=== PATIENT | male | born 1955 | race Caucasian/White ===

== ENCOUNTER 2024-01-23 16:45 | Emergency (ER) | payer OTHER ==
[2024-01-23 17:52] LABS: Absolute Basophils 0.1 K/uL (0-0.5); Absolute Eosinophils 0.5 K/uL (0-0.5); Absolute Monocytes 0.7 K/uL (0.1-1.3); Eosinophils % 8.4 % (0-4.4); Hematocrit 38.7 % (39.6-49.0); Hemoglobin 13.4 g/dL (13.6-17.9); Lymphocytes % 32.1 % (15.3-44.8); MCHC 34.7 g/dL (32.0-36.0); MCV 83.7 fL (80-100); MPV 8.8 fL (7.6-11.3); Monocytes % 11.1 % (3.3-12.3); Neutrophils % 47.4 % (41.7-73.7); Nucleated Red Blood Cells % 0.2 % (0-0); Platelets 235 thou/uL (152-406); RBC Red Blood Cell Count 4.62 M/uL (4.33-5.43); Red Cell Distribution Width 13.9 % (12.1-15.2)
--- NOTE | 2024-01-23 17:53 | RAD REPORT ---
EXAMINATION: ONE VIEW CHEST XR CLINICAL INDICATION: Male, 68 years old.CHEST PAIN TECHNIQUE: 1 View, AP supine, X-ray of the chest was performed. [id number]. COMPARISON: No prior exam. FINDINGS: Lungs and pleura: Clear lungs. No effusion. Heart and mediastinum: Normal heart size. Unremarkable mediastinal contours. Osseous structures: No acute abnormality. Tubes/lines: None Other: None. IMPRESSION: No acute intrathoracic abnormality.
[2024-01-23] MEDS ORDERED: ASPIRIN 81 MG CHEWABLE TABLET ONE (18:09)
[2024-01-23 18:10] LABS: Albumin 3.5 g/dL (3.4-5.0); Albumin/Globulin Ratio 0.8 (1.1-1.8); Anion Gap 7.9 mEq/L (5.0-15.0); Bilirubin Direct 0.3 mg/dL (0-0.2); Bilirubin Indirect, Calculated 1.2 mg/dL (0.2-0.8); Bilirubin Total 1.5 mg/dL (0.2-1.0); Globulin 4.4 g/dL (2.3-3.5); Magnesium 1.9 mg/dL (1.6-2.4); Potassium 3.9 mEq/L (3.5-5.1); Protein, Total 7.9 g/dL (6.4-8.2); Troponin High Sensitivity 6.6 pg/mL (<58.9)
--- NOTE | 2024-01-23 18:46 | ER ---
Nurse's Notes [facility] Name: Miguel Angel Salas Age: 68 yrs Sex: Male : 1955 Arrival Date: 01/23/2024 Time: 16:45 Bed 24 Private MD: Diagnosis: Chest pain, unspecified Presentation: 01/22 17:09 Chief complaint: Intermittent substernal chest pain x 3-4 days, became constant with hb left hand pain this morning. Coronavirus screen: At this time, the client does not indicate any symptoms associated with coronavirus-19. Ebola Screen: No symptoms or risks identified at this time. Initial Sepsis Screen: Does the patient meet any 2 criteria? No. Patient's initial sepsis screen is negative. Does the patient have a suspected source of infection? No. Patient's initial sepsis screen is negative. Risk Assessment: Do you want to hurt yourself or someone else? Patient reports no desire to harm self or others. Onset of symptoms was January 20, 2024. 17:09 Method Of Arrival: Ambulatory hb 17:09 Acuity: INDIO 3 hb Historical: - Allergies: 17:10 No Known Allergies; hb - Home Meds: 17:12 Suboxone 8-2 mg sublingual Film [Active]; hb - PMHx: 17:10 COPD; Hypertension; DVT; Glaucoma; hb - Immunization history:: Adult Immunizations up to date. - Infectious Disease History:: Denies. - Social history:: Smoking status: Patient denies any tobacco usage or history of. Screenin:14 [facility] ED Fall Risk Assessment (Adult) History of falling in the last 3 months, me1 including since admission No falls in past 3 months (0 pts) Confusion or Disorientation No (0 pts) Intoxicated or Sedated No (0 pts) Impaired Gait No (0 pts) Mobility Assist Device Used No (0 pt) Altered Elimination No (0 pt) Score/Fall Risk Level 0 - 2 = Low Risk Maintained a safe environment, Provided non-skid footwear, Hourly rounding (assess needs \T\ fall precautionary measures) done. Abuse screen: Denies threats or abuse. Nutritional screening: No deficits noted. Tuberculosis screening: No symptoms or risk factors identified. Assessment: 18:14 General: Appears uncomfortable, well groomed, well developed, well nourished, Behavior me1 is calm, cooperative, appropriate for age, Reports Intermittent substernal chest pain x 3-4 days, became constant with left hand pain this morning. Pain: Complains of pain in epigastric area Pain radiates to left hand Pain currently is 7 out of 10 on a pain scale. Quality of pain is described as stabbing, Pain began suddenly, Is continuous. Neuro: Level of Consciousness is awake, alert, obeys commands, Oriented to person, place, time, situation, Appropriate for age. Cardiovascular: Reports chest pain, Patient's skin is warm and dry. Respiratory: Airway is patent Respiratory effort is even, unlabored, Respiratory pattern is regular, symmetrical. GI: No signs and/or symptoms were reported involving the gastrointestinal system. : No signs and/or symptoms were reported regarding the genitourinary system. EENT: No signs and/or symptoms were reported regarding the EENT system. Derm: Skin is intact, is healthy with good turgor, Skin is pink, warm \T\ dry. Musculoskeletal: No signs and/or symptoms reported regarding the musculoskeletal system. Vital Signs: 17:09 BP 178 / 110; Pulse 94; Resp 16; Temp 96.9(TE); Pulse Ox 99% on R/A; Pain 8/10; hb 18:00 BP 146 / 91; Pulse 87; Resp 15; Pulse Ox 97% ; me1 18:30 BP 141 / 86; Pulse 85; Resp 16; Temp 98.4; Pulse Ox 97% ; me1 17:09 Pain Scale: Adult hb ED Course: 16:46 Patient arrived in ED. im 16:58 Lilia Grover FNP-C [facility]. kb 16:58 Dick Trujillo DO is Attending Physician. kb 17:06 EKG done, reviewed by Lilia ISLAS. hb 17:10 Triage completed. hb 17:11 Arm band placed on. hb 17:38 Patient placed in an exam room, on a stretcher. ll1 17:42 Initial lab(s) drawn, by me, sent to lab. Inserted saline lock: 22 gauge in right ap3 antecubital area, using aseptic technique. Blood collected. Flushed with 10 mL NS. 17:45 Patient has correct armband on for positive identification. Bed in low position. Call me1 light in reach. Side rails up X2. Client placed on continuous cardiac and pulse oximetry monitoring. NIBP monitoring applied. electronic device monitor on. Pulse ox on. NIBP on. 17:45 No provider procedures requiring assistance completed. Patient maintains SpO2 me1 saturation greater than 95% on room air. 17:51 XRAY Chest (1 view) In Process Unspecified. EDMS 18:01 Denise Mancilla, RN is Primary Nurse. me1 18:14 Provided Education on: POC. Verbalized understanding.. me1 18:45 IV discontinued, intact, bleeding controlled, No redness/swelling at site. Pressure me1 dressing applied. Administered Medications: 18:12 Drug: Aspirin PO Chewable Tablet 324 mg PO once; 81 mg tablets x 4 Route: PO; me1 18:13 Follow up: Response: No adverse reaction me1 Medication: 18:14 VIS not applicable for this client. me1 Outcome: 18:45 Discharged to home ambulatory, with significant other, me1 18:45 Condition: stable 18:45 Discharge instructions given to patient, significant other, Instructed on discharge instructions, follow up and referral plans. Demonstrated understanding of instructions, follow-up care, 18:46 Discharge ordered by . kb 18:49 Patient left the ED. me1 Signatures: Dispatcher [employer] EDCT Lilia Grover, JOVANY-C GIRLS SWIMMING COACH-CkSenait Douglas, RN RN Geri Amor RN RN ap3 Natalie Mcarthur RN RN ll1 Treasure Wakefield Michelle, RN RN me1 Corrections: (The following items were deleted from the chart) 17:12 17:09 Chief complaint: Intermittent substernal chest pain x 3-4 days, became constant hb this morning. hb 18:13 17:09 Chief complaint: Intermittent substernal chest pain x 3-4 days, became constant me1 with left hand pain this morning. hb 18:14 17:09 Chief complaint: Intermittent substernal chest pain x 3-4 days, became constant me1 with left hand pain this morning. me1 18:19 18:14 Patient has correct armband on for positive identification. Bed in low position. me1 Call light in reach. Side rails up X2. me1 18:19 17:15 Client placed on continuous cardiac and pulse oximetry monitoring. NIBP me1 monitoring applied. electronic device monitor on. Pulse ox on. NIBP on. me1
--- NOTE | 2024-01-23 18:46 | EDPHYS ---
Physician Documentation [facility] Name: Miguel Angel Salas Age: 68 yrs Sex: Male : 1955 Arrival Date: 01/23/2024 Time: 16:45 Bed 24 Private MD: ED Physician Dcik Trujillo HPI: 01/22 18:44 This 68 yrs old Male presents to ER via Ambulatory with complaints of Chest Pain. kb 18:44 Pt is a 68 year old male who presents for chest pain that started 3 days ago. States kb the pain has been waking him up every morning between 0330 and 0400 then goes away around [id number]. Today the pain has been constant since onset at 0350 so he decided to come in for evaluation. Denies shortness of breath, nausea. Historical: - Allergies: 17:10 No Known Allergies; hb - Home Meds: 17:12 Suboxone 8-2 mg sublingual Film [Active]; hb - PMHx: 17:10 COPD; Hypertension; DVT; Glaucoma; hb - Immunization history:: Adult Immunizations up to date. - Infectious Disease History:: Denies. - Social history:: Smoking status: Patient denies any tobacco usage or history of. ROS: 18:43 Constitutional: As per HPI kb Exam: 18:43 Constitutional: This is a well developed, well nourished patient who is awake, alert, kb and in no acute distress. Head/Face: Normocephalic, atraumatic. ENT: Moist Mucous membranes Cardiovascular: Regular rate Respiratory: Respirations even and unlabored. No increased work of breathing. Talking in full sentences Abdomen/GI: Soft, non-tender. No distention Skin: Warm, dry with normal turgor. Normal color. MS/ Extremity: Pulses equal, no cyanosis. Neurovascular intact. Full, normal range of motion. Neuro: Awake and alert, GCS 15, oriented to person, place, time, and situation. 18:45 ECG was reviewed by the Attending Physician. kb Vital Signs: 17:09 BP 178 / 110; Pulse 94; Resp 16; Temp 96.9(TE); Pulse Ox 99% on R/A; Pain 8/10; hb 18:00 BP 146 / 91; Pulse 87; Resp 15; Pulse Ox 97% ; me1 18:30 BP 141 / 86; Pulse 85; Resp 16; Temp 98.4; Pulse Ox 97% ; me1 17:09 Pain Scale: Adult hb MDM: 16:58 Medical Screening Exam initiated kb 18:43 Differential diagnosis: acute mi, arrhythmia. Data reviewed: vital signs, nurses notes. kb Consideration of Admission/Observation Escalation of care including admission/observation considered. admission considered but pt states he is ready to go home since everything looks ok so far. Does not want to stay for second troponin. . Historians other than the Patient: Spouse/Significant Other: spouse. Counseling: I had a detailed discussion with the patient and/or guardian regarding the historical points, exam findings, and any diagnostic results supporting the discharge/admit diagnosis, lab results, radiology results, the need for outpatient follow up, a family practitioner, to return to the emergency department if symptoms worsen or persist or if there are any questions or concerns that arise at home. 01/22 17:15 Order name: Basic Metabolic Panel; Complete Time: 18:22 kb 01/22 17:15 Order name: CBC with Diff; Complete Time: 17:57 kb 01/22 17:15 Order name: LFT's; Complete Time: 18:22 kb 01/22 17:15 Order name: Magnesium; Complete Time: 18:22 kb 01/22 17:15 Order name: NT PRO-BNP; Complete Time: 18:22 kb 01/22 17:15 Order name: Troponin HS; Complete Time: 18:22 kb 01/22 17:15 Order name: Lipase; Complete Time: 18:22 kb 01/22 17:15 Order name: XRAY Chest (1 view); Complete Time: 17:57 kb 01/22 17:15 Order name: Cardiac monitoring; Complete Time: 18:08 kb 01/22 17:15 Order name: EKG - Nurse/Tech; Complete Time: 18:08 kb 01/22 17:15 Order name: IV Saline Lock; Complete Time: 17:41 kb 01/22 17:15 Order name: Labs collected and sent; Complete Time: 17:41 kb 01/22 17:15 Order name: O2 Per Protocol; Complete Time: 18:08 kb 01/22 17:15 Order name: O2 Sat Monitoring; Complete Time: 18:08 kb EC:45 Rate is 90 beats/min. Rhythm is regular. QRS [place]ou[place] is Normal. CO interval is normal at kb 162 msec. QRS interval is normal at 82 msec. QT interval is normal at 430 msec. Administered Medications: 18:12 Drug: Aspirin PO Chewable Tablet 324 mg PO once; 81 mg tablets x 4 Route: PO; me1 18:13 Follow up: Response: No adverse reaction me1 Disposition: 20:23 I was immediately available on-site in the Emergency Department for consultation in the ms3 care of the patient. Disposition Summary: 01/23/24 18:46 Discharge Ordered Notes: Location: Home kb Condition: Stable kb Diagnosis - Chest pain, unspecified kb Followup: kb - With: Emergency Department - When: As needed - Reason: Worsening of condition Followup: kb - With: Private Physician - When: 2 - 3 days - Reason: Recheck today's complaints, Continuance of care, Re-evaluation by your physician Discharge Instructions: - Discharge Summary Sheet kb - Nonspecific Chest Pain, Adult, [id number] kb Forms: - Medication Reconciliation Form kb - Antibiotic Education kb - Prescription Opioid Use kb - Patient Portal Instructions kb - Leadership Thank You Letter kb Signatures: Dispatcher [employer] [facility] Lilia Grover, CONVERSION MAN-C CONVERSION MAN-Ckb Senait Singh, RN RN Dick Trujillo, DO DO ms3 Denise Mancilla, RN RN me1 Corrections: (The following items were deleted from the chart) 17:16 17:16 Chest Single View+[email or web address] ordered. [facility]
[2024-01-23 23:36] VITALS: O2SAT 97
[2024-01-23 23:38] VITALS: BP 141/86; TEMP 98.4
--- NOTE | 2024-01-25 12:21 | EKG ---
Test Date: 2024-01-23 Test Time: 17:08:11 Chief Relay Tester: HB MEASUREMENT RESULTS: Intervals: Rate: 90 IA: 162 QRSD: 82 QT: 352 QTc: 430 Elk: P: 16 IA: 162 QRS: 35 T: 16 INTERPRETIVE STATEMENTS: Normal sinus rhythm Normal ECG No previous ECG available for comparison Electronically Signed On 01-25-24 12:16:46 CDT by Payam Centeno
== END 2024-01-23 18:49 | disposition home or self-care (01) ==
LOC: ER 16:45
DX: R07.9 Chest pain, unspecified (principal); I10 Essential (primary) hypertension; J44.9 Chronic obstructive pulmonary disease, unspecified
CPT/HCPCS: 36415; 71045; 80048; 80076; 83690; 83735; 83880; 84484; 85025; 93005; 99284